=== PATIENT | female | born 1995 | race Caucasian/White ===

== ENCOUNTER 2016-08-28 15:52 | Emergency (ER) | payer OTHER ==
[~2016-08-28] VITALS: Ht 157.5 cm; Wt 70.3 kg
[~2016-08-28 15:52] MED LIST: NEURONTIN300 MG PO; PEPCID20 MG PO
== END 2016-08-28 16:40 | disposition short-term general hospital (02) ==
LOC: ER 15:52
DX: M51.27 Other intervertebral disc displacement, lumbosacral region (principal)
CPT/HCPCS: J1885; J2270